=== PATIENT | female | born 1975 | race Caucasian/White ===

== ENCOUNTER 2022-08-20 01:02 | Emergency (ER) | payer SELFPAY ==
[~2022-08-20] VITALS: Ht 167.6 cm; Wt 65.8 kg
[2022-08-20] MEDS ORDERED: NS IV 1000 ML 1,000 ML IV STA (01:23)
[2022-08-20] MEDS ORDERED: morphine INJ 10 MG/ML 1ML (SYR OR VIAL) IVP STA (01:23)
[2022-08-20] MEDS ORDERED: KETOROLAC 30 MG/ML VIAL IVP ONE (01:30)
[2022-08-20] MEDS ORDERED: ONDANSETRON 4 MG/2 ML (SDV) Z0FRAN IVP ONE (01:30)
--- NOTE | 2022-08-20 01:37 | ED Abdominal Pain ---
General Chief Complaint: Abdominal/GI Problems Stated Complaint: LOWER ABDOMINAL PAIN/CRAMPS Nursing Triage Note: PATIENT STATES SHE HAS HAD HORRIBLE CRAMPING/NAUSEA/VOMITTING/DIARRHEA FOR THE LAST FEW HOURS. PATIENT REPORTS FOR THE LAST TWO MONTHS SHE HAS BEEN TAKING PROGESTERONE 400 MG DAILY AND ESTROGEN 2 MG TID AND HAD IVF TREATMENT RECENTLY. PATIENT REPORTS DUE TO THE IVF TREATMENT NOT WORKING SHE WAS INSTRUCTED TO STOP THE ESTROGEN AND PRGESTERON WHICH SHE DID ON TUESDAY. STATES MALINA STARTED HER PEROID, WAS INSTRUCTED BY HER PHYSICIAN SHE WOULD HAVE SOME CRAMPING. PATIENT STATES THIS IS THE WORST PAIN EVER. PATIENT BENT OVER IN W/C AND CRYING. Source of Information: Patient Exam Limitations: No Limitations History of Present Illness Date Seen by Provider: Aug 20, 2022 Time Seen by Provider: 01:05 Initial Comments 47-year-old female that actually was trying to get and went through a cycle of IVF on progesterone and estrogen. Unfortunately, she did not become , and was told to stop the hormones on Tuesday. She started menstruating today and is having severe abdominal cramping. She has a history of severe menstruation with a history of previous ovarian cysts and endometriosis. Denies any fever, vomiting, although she is nauseous, diarrhea, dysuria, urinary frequency, chest pain, shortness of breath, weakness, numbness, or any other concerns. Allergies and Home Medications Allergies Coded Allergies: Penicillins (Unverified Allergy, Severe, Anaphylaxis, 08/20/22) propoxyphene (Unverified Allergy, Intermediate, 08/20/22) Sulfa (Sulfonamide Antibiotics) (Unverified Allergy, Mild, Rash, 08/20/22) codeine (Unverified Allergy, Mild, 08/20/22) Patient Home Medication List Home Medication List Reviewed: Yes Ketorolac Tromethamine (Ketorolac Tromethamine) 10 Mg Tablet, 10 MG PO Q6H PRN for PAIN-MODERATE (5-7) Prescribed by: FELIPE ROBERSON on 08/20/22232 Ondansetron (Ondansetron Odt) 4 Mg Tab.rapdis, 4 MG SL Q6H PRN for NAUSEA/VOMITING Prescribed by: FELIPE ROBERSON on 08/20/22232 Oxycodone HCl (Oxycodone HCl) 5 Mg Tablet, 5 MG PO Q6H PRN for PAIN-BREAKTHROUGH Prescribed by: FELIPE ROBERSON on 08/20/22 0234 Review of Systems Review of Systems Constitutional: No fever EENTM: No Blurred Vision Respiratory: No Symptoms Reported Cardiovascular: No Symptoms Reported Gastrointestinal: See HPI Genitourinary: See HPI Musculoskeletal: no symptoms reported Skin: no symptoms reported Psychiatric/Neurological: No Symptoms Reported Endocrine: No Symptoms Reported Hematologic/Lymphatic: No Symptoms Reported All Other Systems Reviewed Negative Unless Noted: Yes Past Xlhtoig-Upxous-Whwejc Hx Patient Social History Tobacco Use?: No Use of E-Cig and/or Vaping dev: No Substance use?: No Alcohol Use?: No Pt feels they are or have been: No Immunizations Up To Date Influenza Vaccine Up-to-Date: Yes; Up-to-Date Past Medical History Surgeries: Yes (ovarian cystectomy, endometriosis removal) Last Menstrual Period: Aug 20, 2022 Physical Exam Vital Signs Vital Signs - First Documented 08/20/22 01:10 Temp 36.9 Pulse 84 Resp 18 B/P (MAP) 155/113 (127) Pulse Ox 100 O2 Delivery Room Air Capillary Refill : Less Than 3 Seconds Height/Weight/BMI Height: '" Weight: lbs. oz. kg; 23.00 BMI Method: General Appearance: WD/WN, mild distress HEENT: PERRL/EOMI, normal ENT inspection, pharynx normal Neck: non-tender, full range of motion, supple, normal inspection Respiratory: chest non-tender, lungs clear, normal breath sounds, no respiratory distress, no accessory muscle use Cardiovascular: regular rate, rhythm, no edema, no murmur Gastrointestinal: normal bowel sounds, soft; No distended, No guarding, No rebound; tenderness Extremities: normal range of motion, non-tender, normal inspection, no pedal edema, no calf tenderness, normal capillary refill Back: normal inspection, no CVA tenderness Neurologic/Psychiatric: no motor/sensory deficits, alert, normal mood/affect Skin: normal color, warm/dry Lymphatic: no adenopathy Progress/Results/Core Measures Results/Orders Lab Results Laboratory Tests Test 08/20/22 01:18 08/20/22 02:37 Range/Units White Blood Count 8.2 4.3-11.0 10^3/uL Red Blood Count 4.10 3.80-5.11 10^6/uL Hemoglobin 12.4 11.5-16.0 g/dL Hematocrit 36 35-52 % Mean Corpuscular Volume 88 80-99 fL Mean Corpuscular Hemoglobin 30 25-34 pg Mean Corpuscular Hemoglobin Concent 34 32-36 g/dL Red Cell Distribution Width 13.0 10.0-14.5 % Platelet Count 321 130-400 10^3/uL Mean Platelet Volume 10.6 9.0-12.2 fL Immature Granulocyte % (Auto) 0 % Neutrophils (%) (Auto) 64 42-75 % Lymphocytes (%) (Auto) 26 12-44 % Monocytes (%) (Auto) 8 0-12 % Eosinophils (%) (Auto) 1 0-10 % Basophils (%) (Auto) 1 0-10 % Neutrophils # (Auto) 5.3 1.8-7.8 10^3/uL Lymphocytes # (Auto) 2.1 1.0-4.0 10^3/uL Monocytes # (Auto) 0.6 0.0-1.0 10^3/uL Eosinophils # (Auto) 0.1 0.0-0.3 10^3/uL Basophils # (Auto) 0.1 0.0-0.1 10^3/uL Immature Granulocyte # (Auto) 0.0 0.0-0.1 10^3/uL Sodium Level 136 135-145 MMOL/L Potassium Level 3.6 3.6-5.0 MMOL/L Chloride Level 101 98-107 MMOL/L Carbon Dioxide Level 21 21-32 MMOL/L Anion Gap 14 5-14 MMOL/L Blood Urea Nitrogen 13 7-18 MG/DL Creatinine 0.95 0.60-1.30 MG/DL Estimat Glomerular Filtration Rate 73 BUN/Creatinine Ratio 14 Glucose Level 128 H 70-105 MG/DL Calcium Level 9.2 8.5-10.1 MG/DL Corrected Calcium 9.0 8.5-10.1 MG/DL Magnesium Level 1.8 1.6-2.4 MG/DL Total Bilirubin 0.3 0.1-1.0 MG/DL Aspartate Amino Transf (AST/SGOT) 11 5-34 U/L Alanine Aminotransferase (ALT/SGPT) 8 0-55 U/L Alkaline Phosphatase 77 40-136 U/L C-Reactive Protein 0.64 H <0.50 MG/DL Total Protein 7.1 6.4-8.2 GM/DL Albumin 4.2 3.2-4.5 GM/DL Lipase 35 8-78 U/L My Orders Orders - FELIPE ROBERSON MD Cbc With Automated Diff (08/20/22:) Comprehensive Metabolic Panel (08/20/22:) Lipase (08/20/22:) Magnesium (08/20/22:) Crp Fs (08/20/22:) Ed Iv/Invasive Line Start (08/20/22) Morphine Injection (Morphine Injection (08/20/22:) Ondansetron Injection (Zofran Injectio (08/20/22:30) Ns Iv 1000 Ml (Sodium Chloride 0.9%) (08/20/22:) Ketorolac Injection (Toradol Injection) (08/20/22 01:30) Hcg,Qualitative Serum (08/20/22 02:24) Oxycodone Immediate Rel Tablet (Oxyir Ta (08/20/22 02:30) Promethazine Injection (Phenergan Injec (08/20/22 02:30) Medications Given in ED Current Medications Medications Dose Ordered Sig/Job Route Start Time Stop Time Status Last Admin Dose Admin Ketorolac Tromethamine 15 mg ONCE ONCE IVP 08/20/22 01:30 08/20/22 01:31 DC 08/20/22 01:31 15 MG Ondansetron HCl 4 mg ONCE ONCE IVP 08/20/22 01:30 08/20/22 01:31 DC 08/20/22 01:32 4 MG Vital Signs/I&O 08/20/22 01:10 Temp 36.9 Pulse 84 Resp 18 B/P (MAP) 155/113 (127) Pulse Ox 100 O2 Delivery Room Air Blood Pressure Mean: 127 Progress Progress Note : Progress Note 47-year-old female with above history coming in due to lower abdominal cramping in the setting of coming off a cycle of IVF after a failed attempt to get . ABCs were intact and vitals were stable on presentation. Physical exam with some mild lower abdominal tenderness but no signs of peritonitis. An IV was placed and she was given Zofran for nausea, morphine and Toradol for pain control. Basic labs reassuring including normal white blood cell count, normal LFTs, negative test. She is not having any urinary symptoms at this time. Pain significantly improved on reassessment. I did a [id number] ultrasound showing no free fluid in her abdomen or pelvis that would be concerning for ovarian hyperstimulation syndrome. She also has no pericardial effusion. Overall I believe she is stable for discharge with outpatient follow-up. She was sent home with strict return precautions. Departure Impression Primary Impression: Abdominal cramping Additional Impressions: Patient undergoing in vitro fertilization Vomiting in adult Disposition: HOME, SELF-CARE Condition: Stable Departure-Patient Inst. Decision time for Depature: 03:10 Referrals: NO,LOCAL PHYSICIAN (PCP/Family) Primary Care Physician Patient Instructions: Severe Abdominal Pain, Adult (DC) Add. Discharge Instructions: I recommend contacting your regular doctor that is in charge of your IVF if able to discuss your symptoms and see if they have any recommendations. Otherwise take the Toradol every 6 hours as needed for pain for the next couple of days. You can add on Tylenol 1000 mg every 6 hours. Do not mix any NSAIDs such as ibuprofen or naproxen with your Toradol. Take the oxycodone for breakthrough pain. Nausea medicines were also sent to your pharmacy. Scripts Ondansetron (Ondansetron Odt) 4 Mg Tab.rapdis 4 MG SL Q6H PRN for NAUSEA/VOMITING for 5 Days, #20 TAB Prov: FELIPE ROBERSON MD 08/20/22 Oxycodone HCl (Oxycodone HCl) 5 Mg Tablet 5 MG PO Q6H PRN for PAIN-BREAKTHROUGH for 3 Days, #12 TAB Prov: FELIPE ROBERSON MD 08/20/22 Ketorolac Tromethamine (Ketorolac Tromethamine) 10 Mg Tablet 10 MG PO Q6H PRN for PAIN-MODERATE (5-7) for 3 Days, #12 TAB Prov: FELIPE ROBERSON MD 08/20/22 Work/School Note: Work Release Form Date Seen in the Emergency Department: Aug 20, 2022 Return to Work: Aug 21, 2022 Restrictions: No Restrictions FELIPE ROBERSON MD Aug 20, 2022 01:37
[2022-08-20 02:21] LABS: BASOPHILS # (AUTO) 0.1 10^3/uL (0.0-0.1); BASOPHILS % (AUTO) 1 % (0-10); EOSINOPHILS # (AUTO) 0.1 10^3/uL (0.0-0.3); EOSINOPHILS % (AUTO) 1 % (0-10); HEMATOCRIT 36 % (35-52); HEMOGLOBIN 12.4 g/dL (11.5-16.0); LYMPHOCYTES # (AUTO) 2.1 10^3/uL (1.0-4.0); LYMPHOCYTES % (AUTO) 26 % (12-44); MEAN CORPUSCULAR HEMOGLOBIN 30 pg (25-34); MEAN CORPUSCULAR HGB CONC 34 g/dL (32-36); MEAN CORPUSCULAR VOLUME 88 fL (80-99); MEAN PLATELET VOLUME 10.6 fL (9.0-12.2); MONOCYTES # (AUTO) 0.6 10^3/uL (0.0-1.0); MONOCYTES % (AUTO) 8 % (0-12); NEUTROPHILS # (AUTO) 5.3 10^3/uL (1.8-7.8); NEUTROPHILS % (AUTO) 64 % (42-75); PLATELET COUNT 321 10^3/uL (130-400); WHITE BLOOD COUNT 8.2 10^3/uL (4.3-11.0)
[2022-08-20] MEDS ORDERED: PROMETHAZINE INJ 25 MG/ML (PHENERGAN) AMP IVP ONE (02:30)
[2022-08-20] MEDS ORDERED: ONDA4TAB11 SL (02:33)
[2022-08-20] MEDS ORDERED: KETO10TA PO (02:33)
[2022-08-20] MEDS ORDERED: OXYC5TAB PO (02:33)
[2022-08-20 02:41] LABS: BILIRUBIN,TOTAL 0.3 MG/DL (0.1-1.0); CALCIUM 9.2 MG/DL (8.5-10.1); CREATININE SERUM 0.95 MG/DL (0.60-1.30); MAGNESIUM 1.8 MG/DL (1.6-2.4); POTASSIUM 3.6 MMOL/L (3.6-5.0)
[2022-08-20 02:42] LABS: ALBUMIN 4.2 GM/DL (3.2-4.5); TOTAL PROTEIN 7.1 GM/DL (6.4-8.2)
[2022-08-20 03:45] VITALS: BP 110/71
== END 2022-08-20 03:45 | disposition home or self-care (01) ==
LOC: ER FS 01:12
DX: Z31.83 Encounter for assisted reproductive fertility procedure cycle (principal); R10.30 Lower abdominal pain, unspecified; R11.2 Nausea with vomiting, unspecified; Z88.5 Allergy status to narcotic agent
CPT/HCPCS: 36415; 80053; 83690; 83735; 84703; 85025; 86141; 99283